=== PATIENT | female | born 1990 | race Caucasian/White ===

== ENCOUNTER 2016-10-24 15:43 | Emergency (ER) | payer BC ==
[~2016-10-24] VITALS: Ht 170.2 cm; Wt 65.0 kg
[2016-10-24 15:45] VITALS: BP 132/66; PULSE 88; RESP 14; TEMP 97.8; O2SAT 100
[2016-10-24 16:09] VITALS: BP 115/74; PULSE 76; O2SAT 98
[2016-10-24] MEDS ORDERED: SODIUM CHLORIDE 0.9% FLUSH 10 ML FLUSH IVF PRN (16:15)
--- NOTE | 2016-10-24 16:33 | PD ---
HPI Chief Complaint: Cardiac Complaint Time Seen by Provider: 16:01 Travel History International Travel<30 days: No Contact w/Intl Traveler<30days: No Traveled to known affect area: No History of Present Illness HPI Healthy 26-year-old female with history of tachycardia here with complaint of chest pain. Patient takes metoprolol 25 mg twice a day for history of sinus tachycardia and palpitations. She is followed by Dr. Nieves of cardiology for this as an outpatient. States that she missed her evening metoprolol dose yesterday and had some associated substernal chest pain. She describes the chest pain is a hard, thud as though her heart is beating strong. She notes mild associated shortness of breath with this and lightheadedness. No nausea, vomiting, pleuritic pain. Patient had a recurrent episode this morning prompting ER visit. Patient has had Holter monitoring and extensive outpatient testing with no abnormalities other than sinus tachycardia. She does not know she's ever had any thyroid testing. Associated symptoms which did seem to help it some. She is symptom-free at this time. [facility] Past Medical History Heart Rhythm Problems: Yes Chest Pain: Yes Tetanus Vaccination: < 5 Years Influenza Vaccination: No ?: Not LMP: 10/06/16 Social History Alcohol Use: Yes (socially) Tobacco Use: Yes (3 cigarettes) Substance Use: No Allergies-Medications (Allergen,Severity, Reaction): Coded Allergies: Penicillin (Verified Allergy, Unknown, THROAT SWELLING, 10/24/16) Review of Systems Except as stated in HPI: all other systems reviewed are Neg Physical Exam Narrative GENERAL: Well-appearing female in no acute distress SKIN: Focused skin assessment warm/dry. HEAD:. Normocephalic. EYES: No scleral icterus. No injection or drainage. ENT: Mucous membranes pink and moist. NECK: Supple CARDIOVASCULAR: Regular rate and rhythm. No murmur appreciated. RESPIRATORY: No accessory muscle use. Clear to auscultation. Breath sounds equal bilaterally. GASTROINTESTINAL: Abdomen soft, non-tender, nondistended. MUSCULOSKELETAL: No obvious deformities. No edema. NEUROLOGICAL: Awake and alert. Motor grossly within normal limits. Normal speech. PSYCHIATRIC: Anxious Data Data Last Documented VS Vital Signs Date Time Temp Pulse Resp B/P Pulse Ox O2 Delivery O2 Flow Rate FiO2 10/24/16 16:09 76 115/74 98 10/24/16 16:06 21 Room Air 10/24/16 15:45 97.8 Orders Electrocardiogram (10/24/16 ) Basic Metabolic Panel (Bmp) (10/24/16 16:08) Complete Blood Count With Diff (10/24/16 16:08) Magnesium (Mg) (10/24/16 16:08) Ecg Monitoring (10/24/16 16:08) Iv Access Insert/Monitor (10/24/16 16:08) Oximetry (10/24/16 16:08) Sodium Chloride 0.9% Flush (Ns Flush) (10/24/16 16:15) Thyroid Stimulating Hormone (10/24/16 16:08) MDM Medical Decision Making Medical Screen Exam Complete: Yes Emergency Medical Condition: Yes Medical Record Reviewed: Yes Differential Diagnosis 26-year-old female with history of sinus tachycardia here with complaint of palpitations with associated chest pain intermittently since yesterday after missing her evening metoprolol dose. Differential includes palpitations, PVC, PAC, arrhythmia, electrolyte abnormality, thyroid abnormality and less likely ACS, PE, dissection. Narrative Course Patient placed on monitor, IV established and blood obtained. A twelve-lead EKG shows sinus rhythm without notable ST or T-wave abnormalities and normal intervals. CBC, BMP, magnesium and TSH were obtained and are pending at the time of dictation. Patient signed out to oncoming provider waiting results of same for hopeful disposition home. Patient Instructions: General Instructions Departure Forms: Tests/Procedures Beth Quiñones MD October 24, 2016 16:33
[2016-10-24 16:55] LABS: BASOPHIL % 0.4 % (0.0-2.0); EOSINOPHIL # 0.2 TH/MM3 (0-0.4); EOSINOPHIL % 2.1 % (0.0-4.0); HEMO FLAGS DIFF FINAL; LYMPH % 30.7 % (9.0-44.0); LYMPHOCYTE # 2.6 TH/MM3 (1.0-4.8); MEAN CELL VOLUME 90.7 FL (80.0-100.0); MEAN CORPUSCULAR HEMOGLOBIN 30.8 PG (27.0-34.0); MEAN CORPUSCULAR HGB CONC 33.9 % (32.0-36.0); MONO % 7.7 % (0.0-8.0); NEUT % 59.1 % (16.0-70.0); PLATELET COUNT 193 TH/MM3 (150-450); RED BLOOD COUNT 4.19 MIL/MM3 (4.00-5.30); RED CELL DISTRIBUTION WIDTH 12.9 % (11.6-17.2); WHITE BLOOD COUNT 8.5 TH/MM3 (4.0-11.0)
[2016-10-24 17:14] LABS: BICARBONATE 27.9 MEQ/L (21.0-32.0); MAGNESIUM 1.9 MG/DL (1.5-2.5); POTASSIUM 3.6 MEQ/L (3.5-5.1)
--- NOTE | 2016-10-24 18:03 | PD ---
Physical Exam Date Seen by Provider: October 24, 2016 Narrative Care was assumed from Dr. Quiñones at 5 PM pending labs. Patient was being seen for palpitations. Her symptoms have resolved. Data Data Last Documented VS Vital Signs Date Time Temp Pulse Resp B/P Pulse Ox O2 Delivery O2 Flow Rate FiO2 10/24/16 16:09 76 115/74 98 10/24/16 16:06 21 Room Air 10/24/16 15:45 97.8 Orders Electrocardiogram (10/24/16 ) Basic Metabolic Panel (Bmp) (10/24/16 16:08) Complete Blood Count With Diff (10/24/16 16:08) Magnesium (Mg) (10/24/16 16:08) Ecg Monitoring (10/24/16 16:08) Iv Access Insert/Monitor (10/24/16 16:08) Oximetry (10/24/16 16:08) Sodium Chloride 0.9% Flush (Ns Flush) (10/24/16 16:15) Thyroid Stimulating Hormone (10/24/16 16:08) Labs Laboratory Tests Test 10/24/16 10/24/16 16:15 16:20 White Blood Count 8.5 TH/MM3 Red Blood Count 4.19 MIL/MM3 Hemoglobin 12.9 GM/DL Hematocrit 38.0 % Mean Corpuscular Volume 90.7 FL Mean Corpuscular Hemoglobin 30.8 PG Mean Corpuscular Hemoglobin 33.9 % Concent Red Cell Distribution Width 12.9 % Platelet Count 193 TH/MM3 Mean Platelet Volume 9.5 FL Neutrophils (%) (Auto) 59.1 % Lymphocytes (%) (Auto) 30.7 % Monocytes (%) (Auto) 7.7 % Eosinophils (%) (Auto) 2.1 % Basophils (%) (Auto) 0.4 % Neutrophils # (Auto) 5.0 TH/MM3 Lymphocytes # (Auto) 2.6 TH/MM3 Monocytes # (Auto) 0.6 TH/MM3 Eosinophils # (Auto) 0.2 TH/MM3 Basophils # (Auto) 0.0 TH/MM3 CBC Comment DIFF FINAL Differential Comment Sodium Level 140 MEQ/L Potassium Level 3.6 MEQ/L Chloride Level 104 MEQ/L Carbon Dioxide Level 27.9 MEQ/L Anion Gap 8 MEQ/L Blood Urea Nitrogen 11 MG/DL Creatinine 0.77 MG/DL Estimat Glomerular Filtration 92 ML/MIN Rate Random Glucose 84 MG/DL Calcium Level 8.4 MG/DL Magnesium Level 1.9 MG/DL Thyroid Stimulating Hormone 1.160 uIU/ML 3rd Gen MDM Supervised Visit with GRISEL: No Narrative Course Laboratory Tests Test 10/24/16 10/24/16 16:15 16:20 White Blood Count 8.5 TH/MM3 Red Blood Count 4.19 MIL/MM3 Hemoglobin 12.9 GM/DL Hematocrit 38.0 % Mean Corpuscular Volume 90.7 FL Mean Corpuscular Hemoglobin 30.8 PG Mean Corpuscular Hemoglobin 33.9 % Concent Red Cell Distribution Width 12.9 % Platelet Count 193 TH/MM3 Mean Platelet Volume 9.5 FL Neutrophils (%) (Auto) 59.1 % Lymphocytes (%) (Auto) 30.7 % Monocytes (%) (Auto) 7.7 % Eosinophils (%) (Auto) 2.1 % Basophils (%) (Auto) 0.4 % Neutrophils # (Auto) 5.0 TH/MM3 Lymphocytes # (Auto) 2.6 TH/MM3 Monocytes # (Auto) 0.6 TH/MM3 Eosinophils # (Auto) 0.2 TH/MM3 Basophils # (Auto) 0.0 TH/MM3 CBC Comment DIFF FINAL Differential Comment Sodium Level 140 MEQ/L Potassium Level 3.6 MEQ/L Chloride Level 104 MEQ/L Carbon Dioxide Level 27.9 MEQ/L Anion Gap 8 MEQ/L Blood Urea Nitrogen 11 MG/DL Creatinine 0.77 MG/DL Estimat Glomerular Filtration 92 ML/MIN Rate Random Glucose 84 MG/DL Calcium Level 8.4 MG/DL Magnesium Level 1.9 MG/DL Thyroid Stimulating Hormone 1.160 uIU/ML 3rd Gen Patient will be discharged home with instructions to continue her usual medications. Diagnosis Primary Impression: Palpitations Patient Instructions: General Instructions, Palpitations (DC) Departure Forms: Tests/Procedures Additional Instruction: Continue your usual medications. Disposition: DISCHARGE HOME Condition: Stable Nahomy Padron MD October 24, 2016 18:03
--- NOTE | 2016-10-24 19:46 | EKG ---
Date Performed: 10/24/2016 Time Performed: 16:22:10 PTAGE: 26 years EKG: Sinus rhythm NORMAL ECG NO PREVIOUS TRACING DOCTOR: Sonny Nieves Interpretating Date/Time 10/24/2016 19:45:57
== END 2016-10-24 18:27 | disposition home or self-care (01) ==
LOC: NEPD 15:43
DX: R00.2 Palpitations (principal); R00.0 Tachycardia, unspecified; Z72.0 Tobacco use
CPT/HCPCS: 80048; 83735; 84443; 85025; 93005; 99284